=== PATIENT | female | born 1950 | race Caucasian/White ===

== ENCOUNTER → 2017-01-08 | Outpatient (CLI) | payer BC ==
[~2017-01-08] MED LIST: HYDROCHLOROTHIA25 MG PO; HYDROCODON-ACE1 EAC4 PO; MOBIC15 MG PO; NAPROSYN500 MG PO; ULTRAM50 MG PO
== END | disposition short-term general hospital (02) ==
LOC: CLRHEU 10:03
DX: Z51.81 Encounter for therapeutic drug level monitoring (principal); M79.642 Pain in left hand; M79.641 Pain in right hand; M25.641 Stiffness of right hand, not elsewhere classified; M25.642 Stiffness of left hand, not elsewhere classified; I73.00 Raynaud's syndrome without gangrene; M13.80 Other specified arthritis, unspecified site; D47.2 Monoclonal gammopathy; M17.0 Bilateral primary osteoarthritis of knee; I73.89 Other specified peripheral vascular diseases; Z79.899 Other long term (current) drug therapy

== ENCOUNTER → 2017-02-05 | Outpatient (CLI) | payer BC | END | disposition short-term general hospital (02) | LOC: CLRHEU 09:56 | DX: M13.80 Other specified arthritis, unspecified site (principal); D47.2 Monoclonal gammopathy; M19.039 Primary osteoarthritis, unspecified wrist; M17.0 Bilateral primary osteoarthritis of knee; I73.89 Other specified peripheral vascular diseases; Z79.899 Other long term (current) drug therapy ==

== ENCOUNTER → 2017-03-05 | Outpatient (CLI) | payer BC | END | disposition short-term general hospital (02) | LOC: CLRHEU 11:00 | DX: M13.80 Other specified arthritis, unspecified site (principal); D47.2 Monoclonal gammopathy; M17.0 Bilateral primary osteoarthritis of knee; M19.039 Primary osteoarthritis, unspecified wrist; I73.00 Raynaud's syndrome without gangrene; Z79.899 Other long term (current) drug therapy ==